=== PATIENT | male | born 1980 | race Caucasian/White ===

== ENCOUNTER 2022-01-10 21:52 | Emergency (ER) | payer SELFPAY ==
[~2022-01-10] VITALS: Ht 160 cm; Wt 77.0 kg
[2022-01-11] MEDS ORDERED: HYDROCODONE/ACETAMINOPHEN 5/325MG TABLET PO ONE (01:45)
[2022-01-11 02:40] VITALS: BP 119/81
[2022-01-11] MEDS ORDERED: CYCL10TA21 MT (02:52)
[2022-01-11] MEDS ORDERED: IBUP-2029 MT (02:52)
== END 2022-01-11 02:17 | disposition home or self-care (01) ==
LOC: ER 21:52
DX: S40.011A Contusion of right shoulder, initial encounter (principal); W01.0XXA Fall on same level from slipping, tripping and stumbling without subsequent striking against object, initial encounter; Y93.89 Activity, other specified; Y92.89 Other specified places as the place of occurrence of the external cause
CPT/HCPCS: 71045; 73030; 73090; 99284; A4565